=== PATIENT | female | born 1955 | race Caucasian/White ===

== ENCOUNTER 2017-01-30 10:05 | Inpatient (IN) | payer OTHER ==
[2017-01-30] MEDS ORDERED: LIDOCAINE 2% INJ 20 MG/ML (20 ML MDV) ONE (13:04)
[2017-01-30] MEDS ORDERED: SODIUM CHLORIDE 0.9% 1,000 ML IV ONE (13:18)
[2017-01-30] MEDS ORDERED: PRASUGREL 10 MG TAB ONE (13:32)
[2017-01-30] MEDS ORDERED: LIDOCAINE 2% INJ 20 MG/ML SQ ONE (13:32)
[2017-01-30] MEDS ORDERED: PRASUGREL 10 MG TAB PO ONE (13:34)
[2017-01-30] MEDS ORDERED: BIVALIRUDIN BOLUS 250 MG/50 ML IV ONE (13:37)
[2017-01-30] MEDS ORDERED: BIVALIRUDIN 250 MG in SODIUM CHLORIDE 0.9% 50 ML IV ONE (13:38)
[2017-01-30] MEDS ORDERED: MAG HYDROX/AL HYDROX/SIMETH 30 ML CUP PO PRN (13:58)
[2017-01-30] MEDS ORDERED: ZOLPIDEM 5 MG TAB PO PRN (13:58)
[2017-01-30] MEDS ORDERED: NITROGLYCERIN SL TABS 0.4 MG TAB SUBLINGUAL PRN (13:58)
[2017-01-30] MEDS ORDERED: ATROPINE SULFATE 0.1 MG/ML 10ML SYRINGE IV PRN (13:58)
[2017-01-30] MEDS ORDERED: RX INFO: IV CONTRAST WAS GIVEN 1 EACH MISC MISCELLANE PRN (13:58)
[2017-01-30] MEDS ORDERED: IODIXANOL 320 MG/ML 100 ML INTRAARTER ONE (13:58)
[2017-01-30] MEDS ORDERED: SODIUM CHLORIDE 0.9% 1,000 ML IV SCH (14:00)
[2017-01-30 16:02] VITALS: BMI 37.3
[2017-01-30] MEDS: amLODIPine 10 MG TAB PO SCH (19:02)
[2017-01-30] MEDS ORDERED: ATORVASTATIN 80 MG TAB PO SCH (21:00)
--- NOTE | 2017-01-30 21:03 | P.HPIM ---
History of Present Illness H&P Date: 02/06/17 Chief Complaint: Elevated troponin with angina This is a history and physical on a [age]-old white female essentially admitted for coronary stent placement from [facility]. She had cardiac catheterization today which showed right coronary architecture stenosis. Yesterday, she complained of significant anginal chest pain with troponin elevation she ended up having coronary angiography and is not transferred to [facility]. She is a longtime smoker about 40 pack year. Review of Systems Constitutional: Denies chills, Denies fever Eyes: denies blurred vision, denies pain Ears, nose, mouth and throat: Reports bleeding gums, Denies headache, Denies sore throat Cardiovascular: Reports chest pain Respiratory: Denies cough Gastrointestinal: Denies abdominal pain, Denies diarrhea, Denies nausea, Denies vomiting Genitourinary: Denies dysuria, Denies hematuria Musculoskeletal: Reports as per HPI Past Medical History Past Medical History: Hypertension History of Any Multi-Drug Resistant Organisms: None Reported Additional Past Surgical History / Comment(s): ablation Past Psychological History: No Psychological Hx Reported Smoking Status: Current every day smoker Past Alcohol Use History: None Reported Past Drug Use History: None Reported Medications and Allergies Home Medications Medication Instructions Recorded Confirmed Type Benazepril [Lotensin] 20 mg PO BID 09/06/15 01/30/17 History Hydrochlorothiazide [Hydrodiuril] 25 mg PO DAILY 09/06/15 01/30/17 History Beclomethasone Dip 80 Mcg/Puff 2 puff INHALATION RT-DAILY 01/30/17 01/30/17 History [Qvar 80 mcg] Metoprolol Tartrate [Lopressor] 50 mg PO BID 01/30/17 01/30/17 History Allergies Allergy/AdvReac Type Severity Reaction Status Date / Time bee venom protein (honey bee) Allergy Anaphylaxis Verified 01/30/17 15:53 Penicillins Allergy Anaphylaxis Verified 01/30/17 15:53 Sulfa (Sulfonamide Allergy Rash/Hives Verified 01/30/17 15:53 Antibiotics) Physical Exam Vitals: Vital Signs Temp Pulse Resp BP Pulse Ox 01/30/17 17:43 63 16 193/88 01/30/17 16:43 97 16 188/88 01/30/17 16:32 67 16 01/30/17 15:55 98 01/30/17 15:43 67 16 184/88 99 01/30/17 15:13 98.3 F 68 16 179/86 99 01/30/17 14:43 98.2 F 61 16 195/92 01/30/17 14:30 70 16 165/77 100 01/30/17 14:15 58 L 18 99 01/30/17 12:49 56 L 180/88 01/30/17 12:37 173/83 01/30/17 12:30 97.7 F 58 L 18 183/86 98 Intake and Output 01/30/17 01/30/17 01/30/17 06:59 14:59 22:59 Intake Total 126.43 Output Total 1100 Balance 126.43 -1100 Intake: IV 126.43 Output: Urine 1100 Other: Weight 117.934 kg Patient Weight 01/31/17 06:59 Weight 117.934 kg Thrombosis Risk Factor Assmnt - Choose All That Apply Each Risk Factor Represents 2 Points: Age 61-74 years Other congenital or acquired thrombophilia - If yes, enter type in comment: No Thrombosis Risk Factor Assessment Total Risk Factor Score: 2 Thrombosis Risk Factor Assessment Level: Low Risk Assessment and Plan (1) CAD (coronary artery disease) Status: Acute (2) Angina at rest Status: Acute (3) Angina concurrent with and due to arteriosclerosis of coronary artery Status: Acute (4) Essential (primary) hypertension Status: Acute Plan: We will continue to follow this hospitalization. Had a long discussion with cardiology. Anticipate discharge in a.m. Otherwise, refer to [facility] H&P. Time with Patient: Greater than 30
[2017-01-30] MEDS: LISINOPRIL 20 MG TAB PO SCH (21:10)
[2017-01-30] MEDS: METOPROLOL TARTRATE 25 MG TAB PO SCH (21:10)
[2017-01-30] MEDS: hydrALAZINE HCL 50 MG TAB PO SCH (21:10)
[2017-01-31 06:33] LABS: Anion Gap 8 mmol/L; Blood Urea Nitrogen 15 mg/dL (7-17); Calcium 8.9 mg/dL (8.4-10.2); Carbon Dioxide 26 mmol/L (22-30); Chloride 107 mmol/L (98-107); Glucose 101 mg/dL (74-99); Non-African American GFR(MDRD) >60 (>60 ml/min/1.73 sqM); Potassium 3.7 mmol/L (3.5-5.1); Sodium 141 mmol/L (137-145)
--- NOTE | 2017-01-31 07:56 | P.DS ---
Providers Date of admission: 01/30/17 12:39 Attending physician: John Nicholas Consults: 01/30/17 13:58 Consult Physician Routine Consulting Provider: [facility] Consult Reason/Comments: Post Interventional patient Do you want consulting provider notified?: Already Contacted Primary care physician: John Nicholas - Discharge Diagnosis(es) (1) CAD (coronary artery disease) Current Visit: Yes Status: Acute (2) Angina at rest Current Visit: Yes Status: Acute (3) Angina concurrent with and due to arteriosclerosis of coronary artery Current Visit: Yes Status: Acute (4) Essential (primary) hypertension Current Visit: Yes Status: Acute Hospital Course: This is a discharge summary on a 61-year-old white female essentially admitted for coronary artery stenosis. She had stent placement yesterday and is now on stable. No significant chest pain. Edema is stabilizing. We had a long discussion regarding prognosis and DC smoking. The patient is discharged once cleared by cardiology follow-up with me in about one week. Patient Condition at Discharge: Fair Plan - Discharge Summary New Discharge Prescriptions: New amLODIPine [Norvasc] 10 mg PO DAILY #30 tab Aspirin 81 mg PO DAILY Atorvastatin [Lipitor] 80 mg PO HS #30 tab hydrALAZINE HCL [Apresoline] 50 mg PO TID #90 tab Nitroglycerin Sl Tabs [Nitrostat] 0.4 mg SUBLINGUAL Q5M PRN #50 tab PRN Reason: Chest Pain Prasugrel [Effient] 10 mg PO DAILY #30 tab Continue Hydrochlorothiazide [Hydrodiuril] 25 mg PO DAILY Benazepril [Lotensin] 20 mg PO BID Beclomethasone Dip 80 Mcg/Puff [Qvar 80 mcg] 2 puff INHALATION RT-DAILY Metoprolol Tartrate [Lopressor] 50 mg PO BID Discharge Medication List Benazepril [Lotensin] 20 mg PO BID 09/06/15 [History] Hydrochlorothiazide [Hydrodiuril] 25 mg PO DAILY 09/06/15 [History] Beclomethasone Dip 80 Mcg/Puff [Qvar 80 mcg] 2 puff INHALATION RT-DAILY [History] Metoprolol Tartrate [Lopressor] 50 mg PO BID 01/30/17 [History] Aspirin 81 mg PO DAILY 01/31/17 [Rx] Atorvastatin [Lipitor] 80 mg PO HS #30 tab 01/31/17 [Rx] Nitroglycerin Sl Tabs [Nitrostat] 0.4 mg SUBLINGUAL Q5M PRN #50 tab 01/31/17 [Rx ] Prasugrel [Effient] 10 mg PO DAILY #30 tab 01/31/17 [Rx] amLODIPine [Norvasc] 10 mg PO DAILY #30 tab 01/31/17 [Rx] hydrALAZINE HCL [Apresoline] 50 mg PO TID #90 tab 01/31/17 [Rx] Follow up Appointment(s)/Referral(s): John Nicholas MD [Primary Care Provider] - 1 Week Patient Instructions/Handouts: *[facility]gery [facility] - After Heart Catheterization - [facility] Operator Instructions Discharge Disposition: HOME SELF-CARE
[2017-01-31] MEDS ORDERED: BUDESONIDE 1 MG/2 ML NEBU INHALATION SCH (08:00)
[2017-01-31] MEDS: hydrALAZINE HCL 50 MG TAB PO SCH (08:08)
[2017-01-31] MEDS: amLODIPine 10 MG TAB PO SCH (08:08)
[2017-01-31] MEDS: METOPROLOL TARTRATE 25 MG TAB PO SCH (08:09)
[2017-01-31] MEDS: LISINOPRIL 20 MG TAB PO SCH (08:09)
--- NOTE | 2017-01-31 08:59 | PTCA ---
Mrs. Mckeon is a 61 -year-old female with history of chronic tobacco use with no prior history of coronary artery disease who presented to [facility] with symptoms of chest discomfort and had mild troponin elevation. She was diagnosed with non-ST segment elevation myocardial infarction and underwent cardiac catheterization by Dr. Laureano and was found to have critical stenosis involving the mid right coronary artery. In view of that , recommendation was made angioplasty and stenting. The procedure as well as risks and complications were discussed with the patient who is in full understanding and agreement. PROCEDURE: The patient was brought to the [facility] in a fasting semi-sedated state. She has received sedation at [facility] and after achieving moderate conscious sedative state, using guidewire exchange technique , a 6 Danish sheath was introduced to a new 6 Danish sheath in the right femoral artery. Following that,6 Danish FR4 guiding catheter was introduced into the system. After cannulating the right coronary ostium, 0.014 balanced medium weight J wire was advanced across the lesion and positioned distally. Then a 2.5 x 12 mm Trek balloon was advanced. One inflation at 10 atmospheres were done. The balloon was removed and a 3.5 x 15 mm Xience alpine stent was deployed. It was dilated at 14 atmospheres. After the last inflation, after appropriate wait, the balloon and the guidewire were withdrawn back in the guiding catheter. Images were obtained, repeated. Those images revealed stable successful stenting. At that point, the guiding catheter, the balloon and the guidewire were removed. The sheath was removed. Hemostasis was obtained with deployment of an Angioseal. There were no immediate complications. The patient is returned to her room in stable condition. Of note, the patient had chest discomfort with the inflation that resolved at the end of the procedure. She received Angiomax per protocol as well as oral loading dose of Effient. RESULTS: Successful stenting of the mid right coronary artery with reduction of stenosis from 95% to 0%. RECOMMENDATIONS: The patient will be continued on aspirin, Effient, beta carlita , ojy inhibitors, statins. The importance of dual antiplatelet treatment was discussed with the patient and her family who are in full understanding and agreement. Duration of procedure: 42 minutes. GABBY
[2017-01-31] MEDS ORDERED: ASPIRIN 81 MG CHEW PO SCH (09:00)
[2017-01-31] MEDS ORDERED: PRASUGREL 10 MG TAB PO SCH (09:00)
[2017-01-31] MEDS ORDERED: HYDROCHLOROTHIAZIDE 25 MG TAB PO SCH (09:00)
--- NOTE | 2017-01-31 09:00 | MISC ---
Dear Dr. Nicholas: I had the pleasure of performing coronary angioplasty and stenting on Mrs. Mckeon at [facility] on the january and a full copy of procedure note will be forwarded to you. In brief, she underwent successful stenting of her mid right coronary artery using a drug eluting stent. I am hopeful this procedure will stabilize her status. Thank you again for allowing me to participate in this patients care. Please feel free to call for any questions. Sincerely yours, GABBY
--- NOTE | 2017-01-31 09:09 | P.PN ---
Subjective Principal diagnosis: RCA stent This is a pleasant 61-year-old female with history of hypertension, hyperlipidemia, nicotine dependence, who presented to [facility] with symptoms of chest discomfort. She underwent a cardiac catheterization by Dr. Laureano and subsequently underwent angioplasty with stenting of the right coronary artery by Dr. Feliciano. Patient was seen and examined this morning, denies any chest pain or difficulty in breathing. EKG shows a normal sinus rhythm with no changes from post-PCI. Patient's blood pressure last night was up to 200/96, heart rate in 80s. Das added to her medication regime. Blood pressure this morning 182/80 with a heart rate in the 70s. 92% on room air. Sodium 141, potassium 3.7, BUN 15, creatinine 0.7. Objective - Vital Signs Vital signs: Vital Signs Temp 97.8 F 01/31/17 07:57 Pulse 70 01/31/17 07:57 Resp 16 01/31/17 07:57 BP 183/83 01/31/17 07:57 Pulse Ox 92 L 01/31/17 07:57 Intake & Output 01/30/17 01/31/17 01/31/17 18:59 06:59 18:59 Intake Total 126.43 600 Output Total 1100 Balance -973.57 600 Weight 117.934 kg 117.9 kg Intake: IV 126.43 Intake, IV Titration 600 Amount Sodium Chloride 0.9% 1, 600 000 ml @ 100 mls/hr IV . Q10H ROS Rx#:[id number] Output: Urine 1100 Other: # Voids 2 - Exam PHYSICAL EXAMINATION: HEENT: Head is atraumatic, normocephalic. Pupils equal, round. Neck is supple. There is no elevated jugular venous pressure. HEART EXAMINATION: Heart S1, S2 normal. No murmur or gallop heard. CHEST EXAMINATION: Lungs are clear to auscultation and precussion. No chest wall tenderness is noted on palpation or with deep breathing. ABDOMEN: Soft, nontender. Bowel sounds are heard. No organomegaly noted]. Right groin soft, no evidence of any hematoma. EXTREMITIES:[ 2+ peripheral pulses with no evidence of peripheral edema and no calf tenderness noted]. NEUROLOGIC [patient is awake, alert and oriented -3.] . - Labs CBC & Chem 7: 01/31/17 05:53 Labs: Abnormal Lab Results - Last 24 Hours (Table) 01/31/17 Range/Units 05:53 Glucose 101 H (74-99) mg/dL Assessment and Plan (1) Hyperlipidemia Status: Acute (2) S/P right coronary artery (RCA) stent placement Status: Acute (3) Angina concurrent with and due to arteriosclerosis of coronary artery Status: Acute (4) Essential (primary) hypertension Status: Acute Plan: Patient may be able to be discharged home from cardiology's perspective. We'll make her a follow-up appointment with Dr. Echevarria in the office in one week. Patient will be discharged home on Norvasc 10 mg daily, aspirin 81 mg daily, Lipitor 80 mg daily, hydralazine 50 mg 3 times a day, hydrochlorothiazide 25 mg daily, Zestril 20 mg daily, metoprolol tartrate 25 mg one tablet by mouth twice a day, Effient 10 mg daily, and sublingual nitroglycerin as needed for chest pain. Patient has been provided prescriptions for all of the above medications and has been educated regarding them as well. DNP note has been reviewed, I agree with a documented findings and plan of care. Patient was seen and examined.
[2017-01-31 11:02] VITALS: BP 153/74; PULSE 72; RESP 17; TEMP 97.6
== END 2017-01-31 11:50 | disposition home or self-care (01) | DRG 247 ==
LOC: 6SEL 12:39
PROVIDERS: ADMIT Family Medicine; ATTEND Family Medicine
PROC: B2101ZZ Fluoroscopy of Single Coronary Artery using Low Osmolar Contrast (ICD-10-PCS; 2017-01-30)
PROC: 027034Z Dilation of Coronary Artery, One Artery with Drug-eluting Intraluminal Device, Percutaneous Approach (ICD-10-PCS; principal; 2017-01-30 13:00)
DX: I21.4 Non-ST elevation (NSTEMI) myocardial infarction (principal); I10 Essential (primary) hypertension; I25.118 Atherosclerotic heart disease of native coronary artery with other forms of angina pectoris; E78.5 Hyperlipidemia, unspecified; R74.8 Abnormal levels of other serum enzymes; F17.200 Nicotine dependence, unspecified, uncomplicated; Z79.51 Long term (current) use of inhaled steroids; Z88.0 Allergy status to penicillin; Z79.899 Other long term (current) drug therapy; Z71.6 Tobacco abuse counseling; Z88.2 Allergy status to sulfonamides; Z91.030 Bee allergy status
CPT/HCPCS: 80048; 94640

== ENCOUNTER 2018-02-13 03:19 | Emergency (ER) | payer OTHER ==
--- NOTE | 2018-02-13 03:29 | ED ---
General Adult HPI - General Chief complaint: Alcohol Stated complaint: ETOH Time Seen by Provider: 02/13/18 03:28 Source: patient, EMS Mode of arrival: EMS - History of Present Illness Initial comments: Milli is a 62-year-old female who presents to the ED via police for evaluation of alcohol intoxication. Patient reports that she was drinking alcohol in the evening, she then decided she wanted to see her daughter and drove to her daughter's house. She states that she became nauseated and began vomiting. Upon arrival the patient only complains of nausea and vomiting. Patient denies any intent at self-harm, suicidal or homicidal ideations. Police report that the patient was found slumped over in her vehicle, there is vomit on the patient as well as in her vehicle. She smelled of alcohol and admitted to drinking alcohol. - Related Data Home Medications Medication Instructions Recorded Confirmed Benazepril [Lotensin] 20 mg PO BID 09/06/15 01/30/17 Hydrochlorothiazide [Hydrodiuril] 25 mg PO DAILY 09/06/15 01/30/17 Beclomethasone Dip 80 Mcg/Puff 2 puff INHALATION RT-DAILY 01/30/17 01/30/17 [Qvar 80 mcg] Metoprolol Tartrate [Lopressor] 50 mg PO BID 01/30/17 01/30/17 Previous Rx's Medication Instructions Recorded Aspirin 81 mg PO DAILY 01/31/17 Atorvastatin [Lipitor] 80 mg PO HS #30 tab 01/31/17 Nitroglycerin Sl Tabs [Nitrostat] 0.4 mg SUBLINGUAL Q5M PRN #50 tab 01/31/17 Prasugrel [Effient] 10 mg PO DAILY #30 tab 01/31/17 amLODIPine [Norvasc] 10 mg PO DAILY #30 tab 01/31/17 hydrALAZINE HCL [Apresoline] 50 mg PO TID #90 tab 01/31/17 Allergies Allergy/AdvReac Type Severity Reaction Status Date / Time bee venom protein (honey bee) Allergy Anaphylaxis Verified 01/30/17 15:53 Penicillins Allergy Anaphylaxis Verified 01/30/17 15:53 Sulfa (Sulfonamide Allergy Rash/Hives Verified 01/30/17 15:53 Antibiotics) Review of Systems ROS Statement: Those systems with pertinent positive or pertinent negative responses have been documented in the HPI. ROS Other: All systems not noted in ROS Statement are negative. Past Medical History Past Medical History: Hypertension History of Any Multi-Drug Resistant Organisms: MRSA Date of last positivie culture/infection: 2014 MDRO Source:: Legs Additional Past Surgical History / Comment(s): ablation Past Psychological History: Anxiety Smoking Status: Current every day smoker Past Alcohol Use History: Abuse Past Drug Use History: None Reported General Exam Limitations: altered mental status (Alcohol intoxication) General appearance: alert Head exam: Present: atraumatic, normocephalic Eye exam: Present: normal appearance, PERRL ENT exam: Present: normal exam Neck exam: Present: normal inspection Respiratory exam: Present: normal lung sounds bilaterally. Absent: respiratory distress Cardiovascular Exam: Present: normal rhythm, bradycardia GI/Abdominal exam: Present: soft, normal bowel sounds. Absent: distended, tenderness, guarding, rebound, rigid Rectal exam: Present: deferred Extremities exam: Present: normal inspection, full ROM, normal capillary refill. Absent: pedal edema Neurological exam: Present: alert, oriented X3 (Oriented to person, place and events leading up to arrival in the emergency department) Psychiatric exam: Present: depressed, flat affect Skin exam: Present: warm, dry Course Vital Signs 02/13/18 02/13/18 02/13/18 03:21 05:17 05:38 Temperature 97.9 F Pulse Rate 54 L 63 Respiratory 17 17 17 Rate Blood Pressure 144/72 138/89 O2 Sat by Pulse 95 97 Oximetry 02/13/18 02/13/18 07:01 09:05 Temperature 98.4 F Pulse Rate 57 L 64 Respiratory 18 16 Rate Blood Pressure 140/72 135/70 O2 Sat by Pulse 97 99 Oximetry Medical Decision Making - Medical Decision Making The patient was seen and evaluated, history was obtained from the patient and police Patient admits to drinking alcohol and then driving to her daughter's house, then experiencing some nausea and nonbloody nonbilious vomiting On exam the patient is in no acute distress Labs and medications were ordered Labs reveal hypokalemia, by mouth replacement was ordered At this time the patient's clinically sober, not suicidal, not homicidal, not a harm to herself. Patient is stable for discharge home. Per PD request they were notified of the intent to discharge the patient. - Lab Data Result diagrams: 02/13/18 03:27 02/13/18 03:27 Lab Results 02/13/18 02/13/18 Range/Units 03:27 03:27 WBC 10.7 H (3.8-10.6) k/uL RBC 4.29 (3.80-5.40) m/uL Hgb 14.1 (11.4-16.0) gm/dL Hct 40.9 (34.0-46.0) % MCV 95.4 (80.0-100.0) fL MCH 32.9 (25.0-35.0) pg MCHC 34.4 (31.0-37.0) g/dL RDW 13.7 (11.5-15.5) % Plt Count 262 (150-450) k/uL Neutrophils % (Manual) 44 % Lymphocytes % (Manual) 46 % Monocytes % (Manual) 5 % Eosinophils % (Manual) 5 % Neutrophils # (Manual) 4.71 (1.3-7.7) k/uL Lymphocytes # (Manual) 4.92 H (1.0-4.8) k/uL Monocytes # (Manual) 0.54 (0-1.0) k/uL Eosinophils # (Manual) 0.54 (0-0.7) k/uL Nucleated RBCs 0 (0-0) /100 WBC Manual Slide Review Performed Sodium 138 (137-145) mmol/L Potassium 3.3 L (3.5-5.1) mmol/L Chloride 103 (98-107) mmol/L Carbon Dioxide 21 L (22-30) mmol/L Anion Gap 14 mmol/L BUN 19 H (7-17) mg/dL Creatinine 0.80 (0.52-1.04) mg/dL Est GFR (CKD-EPI)AfAm >90 (>60 ml/min/1.73 sqM) Est GFR (CKD-EPI)NonAf 80 (>60 ml/min/1.73 sqM) Glucose 144 H (74-99) mg/dL Calcium 9.0 (8.4-10.2) mg/dL Total Bilirubin 0.3 (0.2-1.3) mg/dL AST 19 (14-36) U/L ALT 31 (9-52) U/L Alkaline Phosphatase 95 (38-126) U/L Total Protein 6.6 (6.3-8.2) g/dL Albumin 3.9 (3.5-5.0) g/dL Lipase 229 (23-300) U/L Disposition Clinical Impression: Alcoholic intoxication Disposition: HOME SELF-CARE Instructions: Alcohol Intoxication (ED) Is patient prescribed a controlled substance at d/c from ED?: No Referrals: John Nicholas MD [Primary Care Provider] - 1-2 days Time of Disposition: 08:21
[2018-02-13] MEDS ORDERED: SODIUM CHLORIDE 0.9% 1,000 ML IV STA (04:53)
[2018-02-13] MEDS ORDERED: ONDANSETRON 4 MG/2 ML VIAL IVP STA (04:54)
[2018-02-13] MEDS ORDERED: FAMOTIDINE 20 MG/2 ML VIAL IV STA (04:54)
[2018-02-13 05:35] LABS: HCT 40.9 % (34.0-46.0); HGB 14.1 gm/dL (11.4-16.0); MCH 32.9 pg (25.0-35.0); MCHC 34.4 g/dL (31.0-37.0); MCV 95.4 fL (80.0-100.0); Mean Platelet Volume 8.2; Platelet Count 262 k/uL (150-450); RBC 4.29 m/uL (3.80-5.40); RDW 13.7 % (11.5-15.5); WBC 10.7 k/uL (3.8-10.6)
[2018-02-13 05:42] LABS: ALT 31 U/L (9-52); AST 19 U/L (14-36); Albumin 3.9 g/dL (3.5-5.0); Alkaline Phosphatase 95 U/L (38-126); Anion Gap 14 mmol/L; Blood Urea Nitrogen 19 mg/dL (7-17); Carbon Dioxide 21 mmol/L (22-30); Chloride 103 mmol/L (98-107); Glucose 144 mg/dL (74-99); Lipase 229 U/L (23-300); Potassium 3.3 mmol/L (3.5-5.1); Sodium 138 mmol/L (137-145); Total Bilirubin 0.3 mg/dL (0.2-1.3); Total Protein 6.6 g/dL (6.3-8.2)
[2018-02-13 06:05] LABS: Eosinophils # (M) 0.54 k/uL (0-0.7); Lymphocytes # (M) 4.92 k/uL (1.0-4.8); Monocytes # (M) 0.54 k/uL (0-1.0); Neutrophils # (M) 4.71 k/uL (1.3-7.7); Neutrophils % (M) 44 %; Nucleated Red Blood Cells 0 /100 WBC (0-0); Total Cells Counted 100
[2018-02-13] MEDS ORDERED: POTASSIUM BICARBONATE/CIT AC 20 MEQ TABLET.EFF PO ONE (08:19)
[2018-02-13 09:06] VITALS: BP 135/70; PULSE 64; RESP 16; TEMP 98.4
== END 2018-02-13 08:50 | disposition home or self-care (01) ==
LOC: EC 03:19
DX: F10.129 Alcohol abuse with intoxication, unspecified (principal); E87.6 Hypokalemia; F32.9 Major depressive disorder, single episode, unspecified; R00.1 Bradycardia, unspecified; I10 Essential (primary) hypertension; F17.200 Nicotine dependence, unspecified, uncomplicated; Z79.51 Long term (current) use of inhaled steroids; Z79.899 Other long term (current) drug therapy; Z88.0 Allergy status to penicillin; Z88.2 Allergy status to sulfonamides; Z91.018 Allergy to other foods; Z86.14 Personal history of Methicillin resistant Staphylococcus aureus infection
CPT/HCPCS: 82075; 36415; 80053; 83690; 85025; 99284; 96374; 96375; 96361; J2405

== ENCOUNTER → 2018-08-19 | Outpatient (CLI) | payer OTHER ==
[2018-08-19 14:57] LABS: HGB 14.2 gm/dL (11.4-16.0); MCH 31.3 pg (25.0-35.0); MCHC 31.5 g/dL (31.0-37.0); MCV 99.4 fL (80.0-100.0); Mean Platelet Volume 7.8; Platelet Count 228 k/uL (150-450); RBC 4.53 m/uL (3.80-5.40); RDW 13.7 % (11.5-15.5); WBC 8.3 k/uL (3.8-10.6)
[2018-08-19 15:11] LABS: Anion Gap 9 mmol/L; Blood Urea Nitrogen 19 mg/dL (7-17); Carbon Dioxide 28 mmol/L (22-30); Chloride 103 mmol/L (98-107); Potassium 4.1 mmol/L (3.5-5.1); Sodium 140 mmol/L (137-145)
== END ==
LOC: LABPAT 14:09
PROVIDERS: ATTEND Internal Medicine Cardiovascular Disease
DX: Z01.812 Encounter for preprocedural laboratory examination (principal); I10 Essential (primary) hypertension; E78.2 Mixed hyperlipidemia; R07.2 Precordial pain
CPT/HCPCS: 80051; 82565; 84520; 85027

== ENCOUNTER 2018-08-20 07:38 | Day surgery (SDC) | payer OTHER ==
[2018-08-18 14:16] VITALS: BMI 35.1
[~2018-08-20 07:38] MED LIST: ALPRAZolam 0.25 MG TAB PO PRN; ALPRAZolam 0.5 MG TAB PO PRN; ASPIRIN 325 MG TAB PO STA; ATORVASTATIN 80 MG TAB PO STA; NITROGLYCERIN SL TABS 0.4 MG TAB SUBLINGUAL PRN; SODIUM CHLORIDE 0.9% 1,000 ML in EMPTY BAG 1 BAG IV ONE
[2018-08-20] MEDS ORDERED: LISINOPRIL 20 MG TAB PO STA (07:58)
[2018-08-20] MEDS ORDERED: METOPROLOL TARTRATE 50 MG TAB PO STA (07:58)
[2018-08-20 08:19] VITALS: RESP 16; TEMP 98.1
[2018-08-20] MEDS ORDERED: LIDOCAINE 1% INJ 10MG/ML (20 ML MDV) ONE (08:20)
[2018-08-20] MEDS ORDERED: fentaNYL (PF) 50 MCG/ML 2 ML AMP ONE (08:20)
[2018-08-20] MEDS ORDERED: fentaNYL (PF) 50 MCG/ML 2 ML AMP IVP ONE (08:25)
[2018-08-20] MEDS: MIDAZOLAM 2 MG/2 ML VIAL IVP ONE ×2 (08:25→08:28)
[2018-08-20] MEDS ORDERED: LIDOCAINE 1% (PF) 10 MG/ML (30 ML SDV) SQ ONE (08:28)
[2018-08-20] MEDS ORDERED: ENALAPRILAT 1.25 MG/ML 1 ML VIAL ONE (08:38)
[2018-08-20] MEDS ORDERED: ENALAPRILAT 1.25 MG/ML 1 ML VIAL IVP ONE (08:40)
[2018-08-20] MEDS ORDERED: IOPAMIDOL-370 125ML BTL INJ ONE (08:44)
[2018-08-20] MEDS ORDERED: RX INFO: IV CONTRAST WAS GIVEN 1 EACH MISC MISCELLANE PRN (08:46)
[2018-08-20] MEDS ORDERED: SODIUM CHLORIDE 0.9% 1,000 ML IV SCH (09:00)
--- NOTE | 2018-08-20 09:14 | CC ---
CARDIAC CATHETERIZATION REPORT INDICATION: Unstable angina. PROCEDURE NOTE: After obtaining informed consent, left heart catheterization and coronary angiogram are performed via the right femoral artery using standard Selena catheters. Patient tolerated the procedure well without any obvious immediate complications. The patient had elevated blood pressure and was given 1.25 mg of on the table. She will receive her regular medications. The patient received moderate conscious sedation. Total sedation time was 23 minutes. A femoral angiogram was performed and Angio-Seal was deployed for hemostasis. FINDINGS: 1. HEMODYNAMICS: Left ventricular end-diastolic pressure is 18 mm. There is no significant gradient across the aortic valve. 2. LEFT VENTRICULOGRAM: Left ventriculogram is not performed. 3. ANGIOGRAPHIC DATA: Left Main Coronary Artery: Left main coronary artery is a normal-sized vessel and is free of stenosis. Divides into left anterior descending coronary artery and circumflex coronary artery. The circumflex coronary artery and its branches are free of significant stenosis. LAD shows mild atherosclerotic changes. Right coronary artery shows a previously stented segment in the proximal part and is free of significant stenosis. The right coronary artery is a large dominant vessel and is free of significant stenosis. CONCLUSIONS: 1. Patent stent within the right coronary artery. 2. Mild nonobstructive disease involving the left system. PLAN: I reviewed angiographic data with the patient and told her that her chest discomfort is probably noncardiac in origin and her management is going to be in the form of risk factor modification and optimal medical therapy. MMODL / IJN: [id number] /
--- NOTE | 2018-08-20 09:19 | LTR ---
August 20, 2018 Re: Milli Mckeon Dear John: I performed cardiac catheterization on Milli Mckeon. A detailed catheterization note is enclosed for your records. In brief the cardiac catheterization revealed a patent stent within the right coronary artery and mild nonobstructive disease involving the left coronary system. Her management is going to be in the form of risk factor modification and optimal medical therapy. The chest discomfort is either due to small vessel disease or is noncardiac in origin. Thank you for giving me the privilege to participate in the care of this pleasant lady. Sincerely, MD ILDA Burns / JUDITN: [id number] /
[2018-08-20 14:17] VITALS: BP 158/72; PULSE 62
== END 2018-08-20 14:17 | disposition home or self-care (01) ==
LOC: CATHCVL 07:38
PROVIDERS: ATTEND Internal Medicine Cardiovascular Disease
DX: I25.110 Atherosclerotic heart disease of native coronary artery with unstable angina pectoris (principal); Z95.5 Presence of coronary angioplasty implant and graft; F17.210 Nicotine dependence, cigarettes, uncomplicated; I10 Essential (primary) hypertension; R07.2 Precordial pain; E78.2 Mixed hyperlipidemia; Z79.02 Long term (current) use of antithrombotics/antiplatelets; Z79.82 Long term (current) use of aspirin; Z79.51 Long term (current) use of inhaled steroids; Z79.899 Other long term (current) drug therapy; Z88.0 Allergy status to penicillin; Z88.2 Allergy status to sulfonamides
CPT/HCPCS: 93458; C1760; C1894; C1769; J2250; J2001; J3010; Q9967

== ENCOUNTER 2018-11-08 04:24 | Emergency (ER) | payer OTHER ==
[2018-11-08 04:35] VITALS: BP 195/111; PULSE 79; RESP 18; TEMP 99.8
[2018-11-08] MEDS ORDERED: LIDOCAINE 1% INJ 10MG/ML (20 ML MDV) SQ ONE (04:40)
--- NOTE | 2018-11-08 04:52 | ED ---
Fall HPI - General Chief Complaint: Fall Stated Complaint: Fall, R Leg Laceration Time Seen by Provider: 11/08/18 04:32 Source: patient Mode of arrival: ambulatory - History of Present Illness Initial Comments: Urine is a 63-year-old female presents to emergency department today for evaluation of laceration of the right caldwell. Patient reports she was walking up the steps of her deck this morning when she didn't lift her foot high enough and her toe caught a step causing her to fall forward. Her caldwell struck the step above she sustained a laceration to the right caldwell. Patient immediately came to the ER for evaluation. Patient reports her tetanus shot is up-to-date from a laceration last year. - Related Data Home Medications Medication Instructions Recorded Confirmed Benazepril [Lotensin] 20 mg PO BID 09/06/15 08/20/18 Beclomethasone Dip 80 Mcg/Puff 2 puff INHALATION RT-DAILY 01/30/17 08/20/18 [Qvar 80 mcg] Metoprolol Tartrate [Lopressor] 50 mg PO BID 01/30/17 08/20/18 Albuterol Inhaler [Ventolin Hfa 1 - 2 puff INHALATION RT-Q6H PRN 08/18/18 08/20/18 Inhaler] Aspirin 325 mg PO DAILY 08/18/18 08/20/18 Diazepam [Valium] 2 mg PO BID 08/18/18 08/20/18 Famotidine [Pepcid] 40 mg PO BID 08/18/18 08/20/18 buPROPion XL [Wellbutrin Xl] 150 mg PO HS 08/18/18 08/20/18 Previous Rx's Medication Instructions Recorded Atorvastatin [Lipitor] 80 mg PO HS #30 tab 01/31/17 Nitroglycerin Sl Tabs [Nitrostat] 0.4 mg SUBLINGUAL Q5M PRN #50 tab 01/31/17 Allergies Allergy/AdvReac Type Severity Reaction Status Date / Time bee venom protein (honey bee) Allergy Anaphylaxis Verified 11/08/18 04:35 Penicillins Allergy Anaphylaxis Verified 11/08/18 04:35 Sulfa (Sulfonamide Allergy Rash/Hives Verified 11/08/18 04:35 Antibiotics) varenicline [From Chantix] AdvReac Unknown Night Louie Verified 11/08/18 04:35 Review of Systems ROS Statement: Those systems with pertinent positive or pertinent negative responses have been documented in the HPI. ROS Other: All systems not noted in ROS Statement are negative. Past Medical History Past Medical History: Chest Pain / Angina, COPD, CVA/TIA, GERD/Reflux, Hyperlipidemia, Hypertension, Myocardial Infarction ([place]), Osteoarthritis (OA) Additional Past Medical History / Comment(s): STATES POSSIBLE TIA -STATES DROOLING WHICH IS IMPROVING (MAY 2018),. HX OF STOMACH ULCERS (AGE 14), ESOPHAGUS EROSION ( 2015?), STATES DOG BITE ON RIGHT HAND 08/17/18-DENIES ANY SIGNS OF INFECTION., SOB . SEE CARDIOLOGY H & P. Last Myocardial Infarction Date:: MAR 2017 History of Any Multi-Drug Resistant Organisms: MRSA Date of last positivie culture/infection: 2014 MDRO Source:: Legs Past Surgical History: Section, Heart Catheterization With Stent, Uterine Ablation Additional Past Surgical History / Comment(s): EYE SURGERY (BABY), X2. Past Anesthesia/Blood Transfusion Reactions: No Reported Reaction Date of Last Stent Placement:: MAR 2017 Past Psychological History: Anxiety Smoking Status: Heavy tobacco smoker Past Alcohol Use History: None Reported Past Drug Use History: None Reported - Past Family History Mother Family Medical History: Cancer Additional Family Medical History / Comment(s): COLON CANCER Daughter(s) Family Medical History: Cancer Additional Family Medical History / Comment(s): SARCOMA General Exam - General Exam Comments Initial Comments: Physical Exam GENERAL: Patient is well-developed and well-nourished. Patient is nontoxic and well-hydrated and is in moderate distress due to pain HENT: Normocephalic, Atraumatic. EYES: PERRL, EOMI PULMONARY: Unlabored respirations. CARDIOVASCULAR: Warm and well perfused extremities ABDOMEN: Obese SKIN: Skin tear on right caldwell, approximately 15 cm in total length, U shaped causing flap : Deferred NEUROLOGIC: Patient is alert and oriented x3. Moving all extremities spontaneously MUSCULOSKELETAL: Able to bear weight on leg PSYCHIATRIC: Normal psychiatric evaluation. Limitations: no limitations Course Vital Signs 11/08/18 04:33 Temperature 99.8 F H Pulse Rate 79 Respiratory 18 Rate Blood Pressure 195/111 O2 Sat by Pulse 96 Oximetry Medical Decision Making - Medical Decision Making The patient was seen and evaluated history is obtained from the patient and signed patient has a large laceration causing a flap on the right caldwell. The flap is pale in color and poorly perfused. I do suspect the flap will . Patient has been ambulatory since the injury has no concern for fracture. Area was cleansed thoroughly with 1 L of normal saline and Betadine. The flap was attracted in the area under the flap was cleansed thoroughly. I offered to anesthetize and suture this area however patient declined she would prefer Steri-Strips as she is aware that the flap is likely nonviable. Area was Steri-Stripped with 9 Steri-Strips. There is good approximation of the wound. There was some mild oozing of serosanguineous fluid from the wound. Wound care was discussed with the patient, patient is very familiar with wound care she's had similar avulsions in the past. At this time patient is comfortable with plan for discharge home. She was noted to be hypertensive during her visit. Patient states she has not yet taken her night dose of antihypertensives. In addition she is also in pain. Patient finds any antihypertensives in the ER and would prefer to take her home medications when she returns home. Disposition Clinical Impression: Fall, Laceration of right lower leg Disposition: HOME SELF-CARE Condition: Stable Instructions (If sedation given, give patient instructions): Fall Prevention for Older Adults (ED), Skin Adhesive Care (ED), Steristrips (ED) Is patient prescribed a controlled substance at d/c from ED?: No Referrals: John Nicholas MD [Primary Care Provider] - 1-2 days
[2018-11-08] MEDS ORDERED: WATER FOR IRRIG, STERILE 1,000 ML BTL IRRIGATION ONE (04:53)
== END 2018-11-08 05:03 | disposition home or self-care (01) ==
LOC: EC 04:24
DX: S81.811A Laceration without foreign body, right lower leg, initial encounter (principal); I10 Essential (primary) hypertension; J44.9 Chronic obstructive pulmonary disease, unspecified; K21.9 Gastro-esophageal reflux disease without esophagitis; I25.2 Old myocardial infarction; M19.90 Unspecified osteoarthritis, unspecified site; F41.9 Anxiety disorder, unspecified; F17.200 Nicotine dependence, unspecified, uncomplicated; Z88.0 Allergy status to penicillin; Z88.2 Allergy status to sulfonamides; Z88.8 Allergy status to other drugs, medicaments and biological substances; Z91.018 Allergy to other foods; Z79.51 Long term (current) use of inhaled steroids; Z79.82 Long term (current) use of aspirin; Z79.899 Other long term (current) drug therapy; Z86.14 Personal history of Methicillin resistant Staphylococcus aureus infection; Z95.5 Presence of coronary angioplasty implant and graft; Z53.20 Procedure and treatment not carried out because of patient's decision for unspecified reasons; W01.198A Fall on same level from slipping, tripping and stumbling with subsequent striking against other object, initial encounter; Y93.01 Activity, walking, marching and hiking; Y92.008 Other place in unspecified non-institutional (private) residence as the place of occurrence of the external cause
CPT/HCPCS: 99283

== ENCOUNTER 2018-12-18 12:07 | Day surgery (SDC) | payer OTHER ==
[2018-12-15 14:47] VITALS: BMI 38.0
[~2018-12-18 12:07] MED LIST changes: -ALPRAZolam 0.25 MG TAB PO PRN; -ALPRAZolam 0.5 MG TAB PO PRN; -ASPIRIN 325 MG TAB PO STA; -ATORVASTATIN 80 MG TAB PO STA; +LACTATED RINGERS 1,000 ML IV SCH; +LIDOCAINE 1% 20 ML VIAL (10MG/ML) FOR IV START INTRADERMA PRN; -NITROGLYCERIN SL TABS 0.4 MG TAB SUBLINGUAL PRN; -SODIUM CHLORIDE 0.9% 1,000 ML in EMPTY BAG 1 BAG IV ONE
[2018-12-18 12:34] VITALS: TEMP 98.1
[2018-12-18] MEDS ORDERED: PROPOFOL 10 MG/ML 20 ML VIAL IV ONE (12:45)
[2018-12-18] MEDS ORDERED: LIDOCAINE 1% INJ 10MG/ML (20 ML MDV) ONE (12:45)
--- NOTE | 2018-12-18 13:13 | P.OP ---
Date of Procedure: 12/18/18 Preoperative Diagnosis: Screening Postoperative Diagnosis: Transverse colon polyp Poor prep Procedure(s) Performed: Colonoscopy with forcep polypectomy Surgeon: Ana Benz Pathology: other (Colon polyp) Condition: stable Disposition: same day Indications for Procedure: 63-year-old female presents for a screening colonoscopy. Risks, benefits and alternatives were provided to the patient prior to procedure being performed. Operative Findings: Transverse colon polyp Poor prep Description of Procedure: The patient was brought to the endoscopy suite and placed in left lateral decubitus position and adequate sedation was achieved using conscious sedation. A digital rectal exam was then performed and internal hemorrhages are palpated. An endoscope was then placed in the rectum and advanced to the level of the cecum as identified by landmarks including the appendiceal orifice and the ileocecal valve. The prep was poor. The colonoscope was then slowly withdrawn examining for any mucosal abnormalities. Due to the poor prep and significant amount of liquid stool, most of the colonic wall was visible, however it cannot be said with certainty that all areas were clearly visualized. The cecum, ascending, transverse, descending and sigmoid colon were visualized. There was a notable polyp in the transverse colon. Forcep polypectomy was used to remove this polyp. There was no evidence of diverticulosis that was clearly visualized. There were no large neoplastic lesions that were clearly visualized. Retroflexion was performed in the rectum and internal hemorrhoids were visible. Excess air was removed. The colonoscope was withdrawn and the procedure terminated. The patient was then transferred to postanesthesia recovery unit in stable condition. Repeat colonoscopy should be performed in one year due to the poor prep along with the finding of a polyp.
[2018-12-18 13:20] VITALS: RESP 18
[2018-12-18 13:34] VITALS: BP 157/76; PULSE 53
--- NOTE | 2018-12-23 10:38 | CDI ---
Outpatient Documentation Clarification Form Date: 12/23/18 CDS/Software Test Automation Engineer Name: Sharon Blanc Phone: If any questions, call Virginia Fragoso Communications Administrator at [phone] Patient Name: Milli Gunn Admit Date: 12/18/18 Discharge Date: 12/18/18 ATTENTION: The [facility] Coding Staff appreciate your assistance in clarifying documentation. Please respond to the clarification below the line at the bottom and electronically sign. The [facility] Coding staff will review the response and follow-up if needed. Please note: Queries are made part of the Legal Health Record. If you have any questions, please contact the Communications Administrator. Dear Dr. Benz, Please provide clarification as to the type of forceps used to removed the polyp in the transverse colon. Removal of polyp Hot biopsy forceps Cold biopsy Forceps. Please Clarify. Thank you for your kind consideration. Cold forceps biopsy was used for removal of polyp MTDD
== END 2018-12-18 13:51 | disposition home or self-care (01) ==
LOC: ORWHC2ENDO 12:07
PROVIDERS: ATTEND Surgery
DX: Z12.11 Encounter for screening for malignant neoplasm of colon (principal); D12.3 Benign neoplasm of transverse colon; K64.8 Other hemorrhoids; I20.9 Angina pectoris, unspecified; I10 Essential (primary) hypertension; E78.5 Hyperlipidemia, unspecified; I25.2 Old myocardial infarction; Z95.5 Presence of coronary angioplasty implant and graft; J44.9 Chronic obstructive pulmonary disease, unspecified; F17.290 Nicotine dependence, other tobacco product, uncomplicated; Z86.73 Personal history of transient ischemic attack (TIA), and cerebral infarction without residual deficits; K21.9 Gastro-esophageal reflux disease without esophagitis; Z80.1 Family history of malignant neoplasm of trachea, bronchus and lung; Z80.0 Family history of malignant neoplasm of digestive organs; Z82.49 Family history of ischemic heart disease and other diseases of the circulatory system; Z79.02 Long term (current) use of antithrombotics/antiplatelets; Z79.82 Long term (current) use of aspirin; Z79.51 Long term (current) use of inhaled steroids; Z79.899 Other long term (current) drug therapy; Z88.0 Allergy status to penicillin; Z88.2 Allergy status to sulfonamides; Z88.8 Allergy status to other drugs, medicaments and biological substances; Z91.030 Bee allergy status
CPT/HCPCS: 88305; 45380; J2001; J2704

== ENCOUNTER → 2019-03-12 | Outpatient (CLI) | payer OTHER ==
--- NOTE | 2019-03-12 10:12 | MM ---
Reason for exam: screening (asymptomatic). Last mammogram was performed 7 years and 10 months ago. History: Patient is postmenopausal and had first child at age 36. Family history of breast cancer in mother. Benign excisional biopsy of the left breast. Physical Findings: A clinical breast exam by your physician is recommended on an annual basis and results should be correlated with mammographic findings. MG Screening Mammo w CAD Bilateral CC and MLO view(s) were taken. Prior study comparison: May 03, 2011, bilateral digital screening mammo w/CAD. March 29, 2010, bilateral digital screening mammogram. The breast tissue is heterogeneously dense. This may lower the sensitivity of mammography. There are benign appearing round calcifications bilaterally. There is no discrete abnormality. ASSESSMENT: Benign, BI-RAD 2 RECOMMENDATION: Routine screening mammogram of both breasts in 1 year.
== END | disposition home or self-care (01) ==
LOC: RADMAMWWP 07:39
PROVIDERS: ATTEND Family Medicine
DX: Z12.31 Encounter for screening mammogram for malignant neoplasm of breast (principal)
CPT/HCPCS: 77067

== ENCOUNTER → 2021-12-08 | Outpatient (CLI) | payer MEDICARE, OTHER ==
--- NOTE | 2021-12-11 08:56 | MM ---
Reason for Exam: Screening (asymptomatic). Last mammogram was performed 2 year(s) and 9 month(s) ago. Patient History: Menarche at age 10. First Full-Term at age 36. Late child-bearing (after 30). Postmenopausal. Benign Excisional Biopsy on the left side. Risk Values: Ana 5 year model risk: 3.0%. NCI Lifetime model risk: 10.6%. Prior Study Comparison: 03/29/2010 Bilateral Screening Mammogram, [facility]. 05/03/2011 Bilateral Screening Mammogram, [facility]. 03/12/2019 Bilateral Screening Mammogram, [facility]. Tissue Density: The breast tissue is heterogeneously dense. This may lower the sensitivity of mammography. Findings: Analyzed By CAD. There is no suspicious group of microcalcifications or new suspicious mass in either breast. Overall Assessment: Negative, BI-RAD 1 Management: Screening Mammogram of both breasts in 1 year. A clinical breast exam by your physician is recommended on an annual basis and results should be correlated with mammographic findings. Electronically signed and approved by: Calvin Hardy M.D. Radiologis
== END | disposition home or self-care (01) ==
LOC: RADMAMWWP 14:16
PROVIDERS: ATTEND Family Medicine
DX: Z12.31 Encounter for screening mammogram for malignant neoplasm of breast (principal)
CPT/HCPCS: 77063; 77067

== ENCOUNTER → 2021-12-15 | Outpatient (CLI) | payer MEDICARE, OTHER ==
--- NOTE | 2021-12-15 16:14 | US ---
EXAMINATION TYPE: US kidneys/renal and bladder DATE OF EXAM: 12/15/2021 COMPARISON: NONE CLINICAL HISTORY: R94.4 ABN RENAL FUNCTIONS. abnormal renal function EXAM MEASUREMENTS: Right Kidney: 10.8 x 4.9 x 4.0 cm Left Kidney: 10.7 x 5.3 x 5.4 cm Right Kidney: no evidence of hydronephrosis Left Kidney: cystic area = 6.7 x 5.3 x 5.4cm Bladder: appears wnl Bilateral Jets seen: no There is no evidence for hydronephrosis at this point in time. No nephrolithiasis is seen. No eleanor s are identified. Kidneys show normal cortical medullary differentiation. The urinary bladder is anec hoic and decompressed IMPRESSION: Large simple cyst left kidney.
== END | disposition home or self-care (01) ==
LOC: RADUSWWP 15:23
PROVIDERS: ATTEND Family Medicine
DX: R94.4 Abnormal results of kidney function studies (principal)
CPT/HCPCS: 76770

== ENCOUNTER → 2023-01-08 | Outpatient (CLI) | payer MEDICARE, OTHER ==
--- NOTE | 2023-01-08 12:35 | XR ---
EXAMINATION TYPE: XR knee complete LT DATE OF EXAM: 01/08/2023 12:04 PM INDICATION: Patient age:Female; 67 years old; Reason for study: S83.8X2A; [facility]. COMPARISON: 09/06/2015 TECHNIQUE: The Left knee(s) was examined in Frontal, lateral and oblique projections. FINDINGS: No evidence of any acute osseous pathology, soft tissue swelling, or joint effusion is no zhang. Tricompartmental osteophyte formation involving the femoral condyles, tibial plateau and patella. Se nadia joint space narrowing. IMPRESSION: 1. No acute osseous pathology. 2. Severe tricompartmental osteoarthritic changes. Which has progressed from prior.
== END | disposition home or self-care (01) ==
LOC: RADXRMAIN 11:29
PROVIDERS: ATTEND Family Medicine
DX: S83.8X2A Sprain of other specified parts of left knee, initial encounter (principal); M17.12 Unilateral primary osteoarthritis, left knee

== ENCOUNTER → 2023-01-22 | Outpatient (CLI) | payer MEDICARE, OTHER ==
--- NOTE | 2023-01-23 09:44 | MM ---
Reason for Exam: Screening (asymptomatic). Last mammogram was performed 1 year(s) and 1 month(s) ago. Patient History: Menarche at age 10. First Full-Term at age 36. Late child-bearing (after 30). Postmenopausal. Patient has history of breast feeding. Patient used Estrogen and Progesterone for 1 year. Benign Excisional Biopsy on the left side. Risk Values: Ana 5 year model risk: 3.0%. NCI Lifetime model risk: 10.2%. Prior Study Comparison: 05/03/2011 Bilateral Screening Mammogram, [facility]. 03/12/2019 Bilateral Screening Mammogram, [facility]. 12/08/2021 Bilateral MG 3D screening mammo w/cad, [facility]. Tissue Density: There are scattered fibroglandular densities. Findings: Analyzed By CAD. There is no suspicious group of microcalcifications or new suspicious mass in either breast. Overall Assessment: Negative, BI-RAD 1 Management: Screening Mammogram of both breasts in [address] [facility] will attempt to contact patient to return for supplemental views and ultrasound if indicated. Patient should continue monthly self-breast exams. A clinical breast exam by your physician is recommended on an annual basis. This exam should not preclude additional follow-up of suspicious palpable abnormalities. Note on Ana scores and lifetime risk: 1. A Ana score greater than 3% is considered moderate risk. If this is the case, consider specialist referral to assess eligibility for a risk reducing agent. 2. If overall lifetime risk for the development of breast cancer is 20% or higher, the patient may qualify for future screening with alternating mammogram and breast MRI. Electronically signed and approved by: Sahil Hernandez DO
== END | disposition home or self-care (01) ==
LOC: RADMAMWWP 09:10
PROVIDERS: ATTEND Family Medicine
DX: Z12.31 Encounter for screening mammogram for malignant neoplasm of breast (principal); Z78.0 Asymptomatic menopausal state
CPT/HCPCS: 77063; 77067

== ENCOUNTER → 2024-05-27 | Outpatient (CLI) | payer MEDICARE, OTHER ==
--- NOTE | 2024-05-27 16:40 | CT ---
EXAMINATION TYPE: CT brain wo con DATE OF EXAM: 05/27/2024 4:20 PM COMPARISON: None. CLINICAL INDICATION: Female, 68 years old with history of G45.9 TRANSIENT CEREBRAL ISCHEMIC ATTACK, U NSPECIF, vertigo and right side numbness x 3 weeks TECHNIQUE: Brain: Axial CT images of the brain were obtained with coronal and sagittal reformats created and rev iewed. Contrast used: None. Oral contrast used: None. CT DLP: 1177 mGycm, Automated exposure control for dose reduction was used. FINDINGS: Brain: Extra-axial spaces: No abnormal extra-axial fluid collections. Ventricular system: Within normal limits Cerebral parenchyma: No acute intraparenchymal hemorrhage or mass effect. The martínez-white junction is well differentiated. Cerebellum: Unremarkable. Mass effect: No evidence of midline shift. Intracranial vasculature: Atherosclerotic calcifications of the intracranial vessels. Soft tissues: Normal. Calvarium/osseous structures: No depressed skull fracture. Paranasal sinuses and mastoid air cells: Mild scattered paranasal sinus disease. Visualized orbits: Bilateral aphakia IMPRESSION: No acute intracranial process. [facility], , 05/27/2024 4:38 PM
== END | disposition home or self-care (01) ==
LOC: RADUSWWP 15:55
PROVIDERS: ATTEND Family Medicine
DX: G45.9 Transient cerebral ischemic attack, unspecified (principal); H27.03 Aphakia, bilateral; I67.2 Cerebral atherosclerosis
CPT/HCPCS: 70450